=== PATIENT | male | born 1980 | race Caucasian/White ===

== ENCOUNTER 2020-03-23 13:35 | Emergency (ER) | payer SELFPAY ==
[~2020-03-23] VITALS: Ht 182.9 cm; Wt 93.2 kg
[2020-03-23 14:04] VITALS: Ht 182.9 cm; Wt 93.2 kg
[2020-03-23 15:17] LABS: GLUCOSE NEGATIVE (NEGATIVE); KETONE MODERATE mg/dL (NEGATIVE); NITRITE NEGATIVE (NEGATIVE); UROBILINOGEN NORMAL (NORMAL)
[2020-03-23 15:18] LABS: BILIRUBIN NEGATIVE (NEGATIVE)
[2020-03-23 15:19] LABS: BACTERIA FEW /hpf (NEGATIVE); RED CELLS - URINE 0-5 /hpf (0-5); WHITE CELLS - URINE 0-5 /hpf (NEGATIVE)
[2020-03-23 15:57] LABS: BASOPHILS 0.2 % (0-2); EOSINOPHILS 1.2 % (0-7); HEMATOCRIT 46.1 % (42.0-54.0); HEMOGLOBIN 14.6 g/dL (13.5-17.5); IMMATURE GRANULOCYTES 0.2 % (0-5); LYMPHOCYTES 13.8 % (15-50); MCH 28.5 pg (26.0-34.0); MCHC 31.7 g/dL (31.0-37.0); MCV 89.9 fL (80.0-100.0); MEAN PLATELET VOLUME 9.1 fL (7.4-10.4); MONOCYTES 10.8 % (2-11); NEUTROPHILS 73.8 % (40-80); PLATELET COUNT 321 10x3/uL (130-400); RBC 5.13 10x6/uL (4.20-6.10); RDW 13.5 % (11.5-14.5); WBC 12.4 10x3/uL (4.8-10.8)
[2020-03-23 16:08] LABS: ANION GAP 9.7 mmol/L (8-16); CALCIUM 9.3 mg/dL (8.5-10.1); CARBON DIOXIDE 28.9 mmol/L (21.0-32.0); CREATININE - SERUM 1.7 mg/dL (0.6-1.3); POTASSIUM - SERUM 3.6 mmol/L (3.5-5.1)
[2020-03-23 16:15] LABS: ALBUMIN 3.4 g/dL (3.4-5.0); BILIRUBIN - TOTAL 0.5 mg/dL (0.2-1.3); PROTEIN - SERUM 7.5 g/dL (6.4-8.2)
[2020-03-23] MEDS ORDERED: FLOMAX0.4 MG PO (16:54)
[2020-03-23] MEDS ORDERED: TORADOL10 MG PO (16:54)
[2020-03-23 17:46] VITALS: BP 131/75
== END 2020-03-23 17:47 | disposition home or self-care (01) ==
LOC: D.ER 13:35
PROVIDERS: Family Medicine
DX: N13.2 Hydronephrosis with renal and ureteral calculous obstruction (principal); R10.30 Lower abdominal pain, unspecified